=== PATIENT | female | born 1975 | race Caucasian/White ===

== ENCOUNTER 2016-09-17 19:04 | Emergency (ER) | payer SELFPAY ==
[~2016-09-17] VITALS: Ht 165.1 cm; Wt 85.0 kg
[~2016-09-17 19:04] MED LIST: ALBU0.08 NEB; AMIT25TA9 PO; CYMB60CA PO; LORA-475 PO; METHY10 PO; PROP20TA3 PO; PROP40TA3 PO
[2016-09-17 19:06] VITALS: BP 128/82; PULSE 77; RESP 16; TEMP 98.5; O2SAT 98
--- NOTE | 2016-09-17 20:35 | PD ---
HPI Chief Complaint: Bleeding Time Seen by Provider: 20:33 Travel History International Travel<30 days: No Contact w/Intl Traveler<30days: No Traveled to known affect area: No History of Present Illness HPI 40-year-old female with history of no significant past medical issues, presents to the ER today with several weeks' history of vaginal bleeding, intermittent passing of blood clots. She denies any abdominal pain, urinary symptoms, vomiting, fevers, chest pains, shortness of breath, or other symptoms. She reports that she has not yet have a new [employer] since her is retired several years ago. Modifying Factors: None Associated Signs & Symptoms: Vaginal bleeding for 7 weeks Risk Factors: None PFSH Past Medical History ADHD: Yes Anxiety: Yes Depression: Yes (MAJOR DEPRESSION X AT LEAST 4 YRS/DR NAYAK) Diminished Hearing: No Headaches: Yes Respiratory: Yes Migraines: Yes Tetanus Vaccination: > 5 Years Influenza Vaccination: No ?: Unknown LMP: 07/18/2016 : 0 Past Surgical History Oral Surgery: Yes (UPPER ARCH) Social History Alcohol Use: Yes (occ) Tobacco Use: No Substance Use: No Allergies-Medications (Allergen,Severity, Reaction): Coded Allergies: [id number] (Verified Adverse Reaction, Severe, muscle pain, 09/17/16) Reported Meds & Prescriptions Reported Meds & Active Scripts Active Reported Albuterol Neb (Albuterol Sulfate) 2.5 Mg/3 Ml Neb 2.5 Mg NEB Q4HR NEB While awake Ritalin IR (Methylphenidate HCl) 10 Mg Tab 10 Mg PO BID Ativan (Lorazepam) 2 Mg Tab 2 Mg PO HS Amitriptyline (Amitriptyline HCl) 25 Mg Tab 25 Mg PO HS Propranolol (Propranolol HCl) 40 Mg Tab 40 Mg PO HS Propranolol (Propranolol HCl) 20 Mg Tab 20 Mg PO DAILY Cymbalta DR (Duloxetine HCl) 60 Mg Capdr 60 Mg PO DAILY Review of Systems Except as stated in HPI: all other systems reviewed are Neg Physical Exam Narrative GENERAL: Well-nourished, well-developed middle age white female patient in no acute distress. SKIN: Warm and dry. HEAD: Normocephalic. EYES: No scleral icterus. No injection or drainage. NECK: Supple, trachea midline. CARDIOVASCULAR: Regular rate and rhythm without murmurs, gallops, or rubs. RESPIRATORY: Breath sounds equal bilaterally. No accessory muscle use. GASTROINTESTINAL: Abdomen soft, non-tender, nondistended. Benign. GENITOURINARY: Normal external genitalia without lesions or erythema. Vaginal vault with dark blood but no significant drainage. Cervical os was closed without drainage. No cervical motion tenderness. Uterus nontender. Bilateral adnexa nontender without masses. MUSCULOSKELETAL: No cyanosis, or edema. BACK: Nontender without obvious deformity. No CVA tenderness. Data Data Last Documented VS Vital Signs Date Time Temp Pulse Resp B/P Pulse Ox O2 Delivery O2 Flow Rate FiO2 09/17/16 21:48 80 20 124/79 99 Room Air 09/17/16 19:06 98.5 Orders Beta Hcg (Quant/Titer) (09/17/16 20:26) Complete Blood Count With Diff (09/17/16 20:26) Basic Metabolic Panel (Bmp) (09/17/16 20:26) Type And Screen (09/17/16 20:26) Urinalysis - C+S If Indicated (09/17/16 20:26) Gc And Chlamydia Pcr (09/17/16 22:13) Wet Prep Profile (09/17/16 22:13) Labs Laboratory Tests Test 09/17/16 09/17/16 20:50 21:45 White Blood Count 11.4 TH/MM3 Red Blood Count 3.91 MIL/MM3 Hemoglobin 12.4 GM/DL Hematocrit 36.7 % Mean Corpuscular Volume 94.0 FL Mean Corpuscular Hemoglobin 31.6 PG Mean Corpuscular Hemoglobin 33.7 % Concent Red Cell Distribution Width 13.2 % Platelet Count 316 TH/MM3 Mean Platelet Volume 8.8 FL Neutrophils (%) (Auto) 66.4 % Lymphocytes (%) (Auto) 26.9 % Monocytes (%) (Auto) 5.2 % Eosinophils (%) (Auto) 1.2 % Basophils (%) (Auto) 0.3 % Neutrophils # (Auto) 7.6 TH/MM3 Lymphocytes # (Auto) 3.1 TH/MM3 Monocytes # (Auto) 0.6 TH/MM3 Eosinophils # (Auto) 0.1 TH/MM3 Basophils # (Auto) 0.0 TH/MM3 CBC Comment DIFF FINAL Differential Comment Sodium Level 140 MEQ/L Potassium Level 4.1 MEQ/L Chloride Level 105 MEQ/L Carbon Dioxide Level 27.7 MEQ/L Anion Gap 7 MEQ/L Blood Urea Nitrogen 6 MG/DL Creatinine 0.79 MG/DL Estimat Glomerular Filtration 81 ML/MIN Rate Random Glucose 99 MG/DL Calcium Level 8.7 MG/DL Human Chorionic Gonadotropin, LESS THAN 1 Quant MIU/ML Blood Type O POSITIVE Antibody Screen NEGATIVE Blood Bank Comment Urine Color YELLOW Urine Turbidity CLEAR Urine pH 6.0 Urine Specific [place] 1.008 Urine Protein NEG mg/dL Urine Glucose (UA) NEG mg/dL Urine Ketones NEG mg/dL Urine Occult Blood LARGE Urine Nitrite NEG Urine Bilirubin NEG Urine Urobilinogen LESS THAN 2.0 MG/DL Urine Leukocyte Esterase NEG Urine RBC /hpf Urine WBC 5 /hpf Urine Squamous Epithelial <1 /hpf Cells Urine Mucus FEW /lpf Microscopic Urinalysis Comment CULT NOT INDICATED MDM Medical Decision Making Medical Screen Exam Complete: Yes Emergency Medical Condition: Yes Medical Record Reviewed: Yes Interpretation(s) Laboratory Tests Test 09/17/16 09/17/16 20:50 21:45 White Blood Count 11.4 TH/MM3 (4.0-11.0) Red Blood Count 3.91 MIL/MM3 (4.00-5.30) Blood Urea Nitrogen 6 MG/DL (7-18) Estimat Glomerular Filtration 81 ML/MIN (>89) Rate Urine Occult Blood LARGE (NEG) Urine Mucus FEW /lpf (OCC) Differential Diagnosis Vaginal bleeding for 7 weeksdysfunctional uterine bleeding versus ectopic versus UTI, rule out significant anemia Narrative Course H&H is stable. She is not . Pelvic exam shows small amount of dark blood within the vault. At this point, my plan would be to release the patient with follow-up to [employer] for further evaluation of the dysfunctional uterine leading. Return for any worsening in bleeding or new issues as needed. The plan has been discussed with the patient and she states understanding. Diagnosis Primary Impression: Dysfunctional uterine bleeding Disposition: DISCHARGE HOME Condition: Stable Dee Dee Aldrich MD Sep 17, 2016 20:35
[2016-09-17 21:04] LABS: AUTOMATED NEUTROPHIL # 7.6 TH/MM3 (1.8-7.7); BASOPHIL % 0.3 % (0.0-2.0); EOSINOPHIL # 0.1 TH/MM3 (0-0.4); EOSINOPHIL % 1.2 % (0.0-4.0); HEMATOCRIT 36.7 % (35.0-46.0); HEMO FLAGS DIFF FINAL; LYMPH % 26.9 % (9.0-44.0); LYMPHOCYTE # 3.1 TH/MM3 (1.0-4.8); MEAN CORPUSCULAR HEMOGLOBIN 31.6 PG (27.0-34.0); MEAN CORPUSCULAR HGB CONC 33.7 % (32.0-36.0); MONO % 5.2 % (0.0-8.0); NEUT % 66.4 % (16.0-70.0); PLATELET COUNT 316 TH/MM3 (150-450); RED BLOOD COUNT 3.91 MIL/MM3 (4.00-5.30); RED CELL DISTRIBUTION WIDTH 13.2 % (11.6-17.2); WHITE BLOOD COUNT 11.4 TH/MM3 (4.0-11.0)
[2016-09-17 21:48] VITALS: BP 124/79; PULSE 80; RESP 20; O2SAT 99
[2016-09-17 22:06] LABS: BLOOD, URINE LARGE (NEG); COMMENT (UR) CULT NOT INDICATED; CULTURE IF INDICATED CULT NOT INDICATED; GLUCOSE,URINE NEG (NEG); KETONE, URINE NEG (NEG); MUCUS URINE FEW /lpf (OCC); NITRITE,URINE NEG (NEG); SQUAMOUS EPITHELIAL CELL URINE <1 /hpf (0-5); URINE COLOR YELLOW (YELLW/STRAW)
[2016-09-17 22:10] LABS: ANION GAP 7 MEQ/L (5-15); BICARBONATE 27.7 MEQ/L (21.0-32.0); BLOOD UREA NITROGEN 6 MG/DL (7-18); CHLORIDE 105 MEQ/L (98-107); GLOMERULAR FILTRATION RATE 81 ML/MIN (>89); POTASSIUM 4.1 MEQ/L (3.5-5.1); SODIUM (NA) 140 MEQ/L (136-145)
[2016-09-17 22:15] LABS: BETA HCG QUANT LESS THAN 1 MIU/ML (0-5)
[2016-09-17] MEDS ORDERED: ORTH1TAB PO (22:41)
[2016-09-18 03:20] LABS: CHLAMYDIA PCR NOT DETECTED (NOT DETECT); NEISSERIA PCR NOT DETECTED (NOT DETECT)
== END 2016-09-17 23:10 | disposition home or self-care (01) ==
LOC: NEPC 19:04
DX: N93.8 Other specified abnormal uterine and vaginal bleeding (principal); F90.9 Attention-deficit hyperactivity disorder, unspecified type
CPT/HCPCS: 80048; 81001; 84702; 85025; 86850; 86900; 86901; 87210; 87491; 87591; 99284